=== PATIENT | female | born 1935 | race Caucasian/White ===

== ENCOUNTER 2017-06-28 06:01 | Inpatient (IN) | payer MEDICARE, OTHER ==
[~2017-06-28] VITALS: Ht 167.6 cm; Wt 64.0 kg
[2017-06-28] MEDS ORDERED: ONDANSETRON 2MG/ML, 2ML IVPush ONE (06:30)
[2017-06-28] MEDS ORDERED: CLINDAMYCIN PMX 600MG/50ML 50 ML IVPB ONE (06:30)
[2017-06-28] MEDS ORDERED: SODIUM CHLORIDE FLUSH 10ML SYR IVF ONE (06:30)
[2017-06-28 07:00] LABS: HEMATOCRIT 37.2 % (34.6-47.8); HEMOGLOBIN 12.4 g/dL (11.7-16.4)
[2017-06-28] MEDS ORDERED: PLEASE ENTER ALLERGIES MC SCH ×2 (07:00)
[2017-06-28 07:14] LABS: ASPARTATE AMINO TRANSFERASE 7 U/L (15-37); BLOOD UREA NITROGEN 24 mg/dL (7-18)
[2017-06-28] MEDS ORDERED: morphine SULFATE 10 MG/ML, 1ML ONE ×2 (07:14→08:37)
[2017-06-28] MEDS ORDERED: CLINDAMYCIN PMX 600MG/50ML 50 ML ONE (07:14)
[2017-06-28] MEDS ORDERED: ONDANSETRON 2MG/ML, 2ML ONE (07:15)
[2017-06-28] MEDS: MORPHINE SULFATE 4 MG/ML, 1ML IV PRN ×2 (07:22→08:39)
[2017-06-28] MEDS ORDERED: ACET325C PO (07:36)
[2017-06-28] MEDS ORDERED: NAPR220T77 PO (07:36)
[2017-06-28] MEDS ORDERED: SODIUM CHLORIDE FLUSH 10ML SYR IVF PRN (08:00)
[2017-06-28 09:00] LABS: PATH.CAST-FLAG NOT PRESENT; SPERM-FLAG NOT PRESENT; SRC-FLAG NOT PRESENT; XTAL-FLAG NOT PRESENT; YLC-FLAG NOT PRESENT
[2017-06-28] MEDS ORDERED: CLOTRIMAZOLE CRM 1%, 15GM TP SCH ×2 (09:00→21:00)
[2017-06-28] MEDS ORDERED: CEFTRIAXONE PMX 1GM/50ML 50 ML ONE (09:23)
[2017-06-28] MEDS ORDERED: CEFTRIAXONE PMX 1GM/50ML 50 ML IV ONE (09:30)
[2017-06-28 10:41] VITALS: BP 138/73
[2017-06-28] MEDS ORDERED: ONDANSETRON ODT 4 MG PO PRN ×2 (12:00→20:30)
[2017-06-28] MEDS ORDERED: SODIUM CHLORIDE 0.9% 1,000 ML IV SCH ×2 (12:00→20:30)
[2017-06-28] MEDS ORDERED: ACETAMINOPHEN 325 MG TABLET PO PRN ×2 (12:00→20:30)
[2017-06-28] MEDS: INSULIN ASPART 100 UNITS/ML, PEN SQ-INSULIN SCH ×3 (12:00→20:50)
[2017-06-28] MEDS ORDERED: ONDANSETRON 2MG/ML, 2ML IVPush PRN ×2 (12:00→20:30)
[2017-06-28] MEDS ORDERED: FLUCONAZOLE 100 MG TABLET PO ONE (12:00)
[2017-06-28 12:37] VITALS: BP 149/68
[2017-06-28] MEDS ORDERED: AMPICILLIN/SULBACTAM 3 GM in SODIUM CHLORIDE 0.9% 100 ML IV SCH (13:00)
[2017-06-28] MEDS: ENOXAPARIN 40 MG/0.4 ML SQ SCH (13:24)
[2017-06-28 18:43] VITALS: BP 137/62
[2017-06-28] MEDS: CLOTRIMAZOLE CRM 1%, 15GM TP SCH (22:27)
[2017-06-28] MEDS ORDERED: DIPHENHYDRAMINE 50 MG/ML, 1ML IVPush ONE (22:30)
[2017-06-29 00:23] VITALS: BP 161/63
[2017-06-29] MEDS: SODIUM CHLORIDE 0.9% 1,000 ML IV SCH ×3 (02:50→23:10)
[2017-06-29 05:17] LABS: HEMATOCRIT 35.6 % (34.6-47.8); HEMOGLOBIN 12.1 g/dL (11.7-16.4); WHITE BLOOD COUNT 11.3 x10^3/uL (3.4-10)
[2017-06-29 05:29] LABS: BLOOD UREA NITROGEN 24 mg/dL (7-18)
[2017-06-29 06:39] VITALS: BP 160/70
[2017-06-29] MEDS: INSULIN ASPART 100 UNITS/ML, PEN SQ-INSULIN SCH ×4 (07:58→21:00)
[2017-06-29] MEDS: CLOTRIMAZOLE CRM 1%, 15GM TP SCH ×2 (08:48→21:00)
[2017-06-29] MEDS: CEFTRIAXONE PMX 1GM/50ML 50 ML IV SCH (08:48)
[2017-06-29] MEDS: ENOXAPARIN 40 MG/0.4 ML SQ SCH (13:58)
[2017-06-29 15:28] VITALS: BP 121/57
[2017-06-29 18:59] VITALS: BP 150/60
[2017-06-30 01:16] VITALS: BP 157/75
[2017-06-30 04:50] LABS: BLOOD UREA NITROGEN 20 mg/dL (7-18)
[2017-06-30] MEDS: INSULIN ASPART 100 UNITS/ML, PEN SQ-INSULIN SCH ×4 (07:51→20:15)
[2017-06-30 08:22] VITALS: BP 165/72
[2017-06-30] MEDS: CEFTRIAXONE PMX 1GM/50ML 50 ML IV SCH (08:38)
[2017-06-30] MEDS: CLOTRIMAZOLE CRM 1%, 15GM TP SCH ×2 (08:38→20:08)
[2017-06-30] MEDS: SODIUM CHLORIDE 0.9% 1,000 ML IV SCH (11:00)
[2017-06-30 14:50] VITALS: BP 181/73
[2017-06-30] MEDS: ENOXAPARIN 40 MG/0.4 ML SQ SCH (15:26)
[2017-06-30 17:00] VITALS: BP 190/64
[2017-06-30] MEDS ORDERED: hydrALAzine 20 MG/ML, 1ML IV PRN (17:30)
[2017-06-30 17:46] VITALS: BP 155/47
[2017-06-30 20:00] VITALS: BP 160/56
[2017-07-01 02:00] VITALS: BP 149/57
[2017-07-01] MEDS: DIPHENHYDRAMINE 50 MG/ML, 1ML IVPush PRN ×2 (03:42→10:54)
[2017-07-01 05:52] LABS: HEMATOCRIT 33.7 % (34.6-47.8); HEMOGLOBIN 11.5 g/dL (11.7-16.4); WHITE BLOOD COUNT 9.5 x10^3/uL (3.4-10)
[2017-07-01 06:09] LABS: BLOOD UREA NITROGEN 14 mg/dL (7-18)
[2017-07-01] MEDS: INSULIN ASPART 100 UNITS/ML, PEN SQ-INSULIN SCH ×4 (07:00→21:03)
[2017-07-01 07:12] VITALS: BP 177/68
[2017-07-01] MEDS: CLOTRIMAZOLE CRM 1%, 15GM TP SCH ×2 (08:24→21:03)
[2017-07-01] MEDS: CEFTRIAXONE PMX 1GM/50ML 50 ML IV SCH (10:53)
[2017-07-01] MEDS ORDERED: FLUCONAZOLE 100 MG TABLET PO ONE (11:00)
[2017-07-01] MEDS: PIOGLITAZONE 15 MG TABLET PO SCH (11:09)
[2017-07-01 13:34] VITALS: BP 145/70
[2017-07-01] MEDS: ENOXAPARIN 40 MG/0.4 ML SQ SCH (14:27)
[2017-07-01 20:00] VITALS: BP 188/70
[2017-07-02 02:00] VITALS: BP 154/54
[2017-07-02] MEDS: DIPHENHYDRAMINE 50 MG/ML, 1ML IVPush PRN (03:31)
[2017-07-02] MEDS: INSULIN ASPART 100 UNITS/ML, PEN SQ-INSULIN SCH ×3 (07:00→16:00)
[2017-07-02 08:00] VITALS: BP 181/68
[2017-07-02] MEDS: CLOTRIMAZOLE CRM 1%, 15GM TP SCH (09:00)
[2017-07-02] MEDS: PIOGLITAZONE 15 MG TABLET PO SCH (09:01)
[2017-07-02] MEDS: CEFTRIAXONE PMX 1GM/50ML 50 ML IV SCH (09:02)
[2017-07-02 14:00] VITALS: BP 197/77
[2017-07-02] MEDS: ENOXAPARIN 40 MG/0.4 ML SQ SCH (14:00)
[2017-07-02] MEDS ORDERED: CEFD300C37 PO (15:36)
[2017-07-02] MEDS ORDERED: CLOT15CR5 TP (15:36)
[2017-07-02] MEDS ORDERED: INSU100I18 SQ-INSULIN (15:36)
[2017-07-02] MEDS ORDERED: TRAM50TA2 PO (15:36)
== END 2017-07-02 18:10 | DRG 602 ==
LOC: ED 07:22 → EDIP 08:00 → 3NW 10:28 → 4EST 06-30 13:39
PROVIDERS: ADMIT Hospitalist; ATTEND Hospitalist
PROC: 0T9B70Z Drainage of Bladder with Drainage Device, Via Natural or Artificial Opening (ICD-10-PCS; principal; 2017-06-28)
DX: L03.311 Cellulitis of abdominal wall (principal); N17.0 Acute kidney failure with tubular necrosis; N39.0 Urinary tract infection, site not specified; E11.65 Type 2 diabetes mellitus with hyperglycemia; B37.2 Candidiasis of skin and nail; M19.90 Unspecified osteoarthritis, unspecified site; I73.9 Peripheral vascular disease, unspecified; B37.3 Candidiasis of vulva and vagina; B96.1 Klebsiella pneumoniae [K. pneumoniae] as the cause of diseases classified elsewhere; G89.29 Other chronic pain; I10 Essential (primary) hypertension; N89.8 Other specified noninflammatory disorders of vagina; Z79.84 Long term (current) use of oral hypoglycemic drugs; Z82.49 Family history of ischemic heart disease and other diseases of the circulatory system; Z83.3 Family history of diabetes mellitus; Z87.891 Personal history of nicotine dependence; Z90.710 Acquired absence of both cervix and uterus
CPT/HCPCS: 36415; 76770; 80048; 80053; 81001; 82962; 83036; 83605; 85025; 87040; 87077; 87086; 87186; 96365; 96367; 96375; 96376; J0696; J1650; J1815; J2405; J0360; J1200; J7030